=== PATIENT | male | born 1970 | race Caucasian/White ===

== ENCOUNTER 2021-12-09 09:20 | Emergency (ER) | payer OTHER, SELFPAY ==
[2021-12-09 09:31] VITALS: BP 151/78; PULSE 92; RESP 16; TEMP 36.8; O2SAT 99
--- NOTE | 2021-12-09 09:57 | ED.EAR ---
HPI - Ear Problem General Chief complaint: Ear Stated complaint: ear pain Time Seen by Provider: 12/09/21 09:57 History of Present Illness HPI Narrative: Ch[place] Johnson is a 51 yo male with no PMH who [facility] with ear pain on L that started yesterday and has gotten worse since then. States he has had an ear infection in years but definitely has had increase in pain last 24 hours Related Data Allergies Allergy/AdvReac Type Severity Reaction Status Date / Time No Known Allergies Allergy Verified 12/09/21 09:55 Review of Systems Review of Systems: CONSTITUTIONAL: Denies fever, chills, sweats. EYES: Denies visual changes, redness, discharge. ENT: Denies rhinorrhea, congestion, sore throat, left otalgia. CARDIOVASCULAR: Denies chest pain, palpitations, edema. RESPIRATORY: Denies dyspnea, wheezing, cough GASTROINTESTINAL: Denies abdominal pain, nausea, vomiting, diarrhea. GENITOURINARY: Denies dysuria, hematuria, abnormal discharge SKIN: Denies rash or itching. NEUROLOGIC: Denies numbness, or focal weakness. PSYCHIATRIC: Denies anxiety or depression. PMFSH Comments At time of signature, I agree with nursing past medical, surgical, social and family history. There is no relevant family history pertinent to the presenting complaint. Exam Narrative: GENERAL: This is a well-nourished, well-developed patient, in mild distress. HEAD: normocephalic, atraumatic. EYES: PERRL. Sclera clear/white. Vision is grossly intact. EARS: External ears normal, auditory canals clear an on right but left external ear is swollen as well as erythema of the canal without drainage, TMs normal without perforation. Hearing grossly intact. NOSE: External nose normal without nasal discharge, nares without redness, no rhinorrhea. THROAT: Mucous membranes moist, posterior pharynx pink NECK: Neck supple, non-tender CARDIOVASCULAR: Regular rate and rhythm without murmurs, gallops, or rubs. RESPIRATORY: Clear to auscultation. Breath sounds equal bilaterally. No wheezes, rales, or rhonchi. GASTROINTESTINAL: Abdomen soft, non-tender, SKIN: warm, intact with no suspicious lesions or rash, good texture and turgor. NEURO: awake, alert, and oriented to person, place and time. There were no obvious focal neurologic abnormalities. Steady gait EXTREMITIES: Normal range of motion. BACK: Nontender without deformity Course Course Emergency Course: Patient here with left ear pain Started on Zyrtec and polymyxin eardrops Level of Care: Express Care Visit Vital Signs Vital signs: Vital Signs Temperature 98.3 F 12/09/21 09:31 Pulse Rate 92 12/09/21 09:31 Respiratory Rate 16 12/09/21 09:31 Blood Pressure 151/78 H 12/09/21 09:31 Pulse Oximetry 99 12/09/21 09:31 Oxygen Delivery Room Air 12/09/21 09:31 Temperature 98.3 F 12/09/21 09:31 Pulse Rate 92 12/09/21 09:31 Respiratory Rate 16 12/09/21 09:31 Blood Pressure 151/78 H 12/09/21 09:31 Pulse Oximetry 99 12/09/21 09:31 Oxygen Delivery Room Air 12/09/21 09:31 Medical Decision Making Vital Signs Vital Signs: Vital Signs Temperature 98.3 F 12/09/21 09:31 Pulse Rate 92 12/09/21 09:31 Respiratory Rate 16 12/09/21 09:31 Blood Pressure 151/78 H 12/09/21 09:31 Pulse Oximetry 99 12/09/21 09:31 Oxygen Delivery Room Air 12/09/21 09:31 Temperature 98.3 F 12/09/21 09:31 Pulse Rate 92 12/09/21 09:31 Respiratory Rate 16 12/09/21 09:31 Blood Pressure 151/78 H 12/09/21 09:31 Pulse Oximetry 99 12/09/21 09:31 Oxygen Delivery Room Air 12/09/21 09:31 Discharge Plan Discharge Clinical Impression: Otitis media Patient Disposition: Home, Self-Care Condition: Stable Instructions: Antibiotic Form, Ear Infection (AC) Additional Instructions: Take Zyrtec in the morning Prescriptions: New [id number] 3.5-10,000-1 mg/mL-unit/mL-% drops,suspension 4 drp LEFT EAR Q8H 10 Days Qty: 10 0RF Foll
== END 2021-12-09 10:17 | disposition home or self-care (01) ==
PROVIDERS: Emergency Provider Nurse Practitioner
DX: H66.92 Otitis media, unspecified, left ear (principal)
CPT/HCPCS: 99203; G0463